=== PATIENT | male | born 1950 | race African-American/Black ===

== ENCOUNTER 2017-05-13 09:52 | Emergency (ER) | payer MEDICARE, MEDICAID ==
[2017-05-13 10:21] LABS: #Basophils 0.1 thou/uL (0.0-0.2); #Eosinphils 0.3 thou/uL (0.0-0.7); #Lymphocytes 2.3 thou/uL (1.20-3.40); #Monocytes 0.5 thou/uL (0.11-0.59); #Neutrophils 2.5 thou/uL (1.40-6.50); %Basophils 2.5 % (0.0-1.0); %Eosinophils 5.8 % (0.0-10.0); %Lymphocytes 40.1 % (21.0-51.0); %Monocytes 8.6 % (0.0-10.0); %Neutrophils 43.1 % (42.0-75.0); Hemoglobin 15.8 g/dL (14.0-18.0); Mean Corpuscular HGB CONC 33.4 g/dL (32.0-36.0); Mean Corpuscular Hemoglobin 30.9 pg (27.0-31.0); Mean Corpuscular Volume 92.4 fl (80.0-94.0); Mean Platelet Volume 6.2 fL (7.4-10.4); Platelet Count 205 thou/uL (130-400); RBC Distribution Width 13.3 % (11.5-14.5); Red Blood Cell (RBC) Count 5.12 mill/uL (4.70-6.10); White Blood Cell (WBC) Count 5.7 thou/uL (4.8-10.8)
[2017-05-13] MEDS ORDERED: Ketorolac Tromethamine 30 MG/ML VIAL ONE (10:26)
[2017-05-13 10:32] LABS: ALT (SGPT) 93 U/L (8-55); AST (SGOT) 92 U/L (5-34); Albumin 3.6 g/dL (3.4-4.8); Alkaline Phosphatase 150 U/L (40-150); Anion Gap 13 mmol/L (10-20); BUN (Urea Nitrogen) 9 mg/dL (8.4-25.7); Bilirubin, Total 0.5 mg/dL (0.2-1.2); Calc. Creatinine Clearance 0 mL/min (70-130); Carbon Dioxide 20 mmol/L (23-31); Chloride 109 mmol/L (98-107); Estimated GFR-MDRD Greater than 90; Globulin 4.4 g/dL (2.4-3.5); Glucose 160 mg/dL (80-115); Lipase 169 U/L (8-78); Potassium 4.3 mmol/L (3.5-5.1); Sodium 138 mmol/L (136-145)
[2017-05-13 10:33] LABS: CKMB 2.1 ng/mL (0-6.6)
--- NOTE | 2017-05-13 13:39 | RAD ---
CHEST TWO VIEWS: 05/13/2017 COMPARISON: No prior films are available for comparison. FINDINGS: The heart is probably normal in size, given the body habitus. At most, it is upper normal. There is no congestive change, pleural effusion, or pulmonary edema. No focal pulmonary findings are appreci ated. There is a little thickening or a tiny amount of fluid in the minor fissure, which is probably not significant. The mediastinum shows no acute changes. IMPRESSION: No acute thoracic findings. POS: HOME
== END 2017-05-13 11:10 | disposition home or self-care (01) ==
LOC: BURERS 09:52
DX: S39.011A Strain of muscle, fascia and tendon of abdomen, initial encounter (principal); M19.012 Primary osteoarthritis, left shoulder; M19.011 Primary osteoarthritis, right shoulder; E78.5 Hyperlipidemia, unspecified; I10 Essential (primary) hypertension; J44.9 Chronic obstructive pulmonary disease, unspecified; F17.210 Nicotine dependence, cigarettes, uncomplicated; F32.9 Major depressive disorder, single episode, unspecified; Z79.899 Other long term (current) drug therapy; X50.9XXA Other and unspecified overexertion or strenuous movements or postures, initial encounter
CPT/HCPCS: 71020; 80053; 82553; 83690; 84484; 85025; 85379; 93005; 96374; 99406; J1885

== ENCOUNTER 2019-02-13 11:40 | Emergency (ER) | payer MEDICARE, MEDICAID ==
[2019-02-13] MEDS ORDERED: Fentanyl 100 MCG/2 ML VIAL ONE ×2 (12:12→13:34)
[2019-02-13] MEDS ORDERED: Ondansetron PF 4 MG/2 ML Vial ONE (12:13)
[2019-02-13 12:31] LABS: #Basophils 0.1 thou/uL (0.0-0.2); #Eosinphils 0.2 thou/uL (0.0-0.7); #Monocytes 0.6 thou/uL (0.11-0.59); #Neutrophils 3.4 thou/uL (1.40-6.50); %Eosinophils 3.3 % (0.0-10.0); %Lymphocytes 31.5 % (21.0-51.0); %Monocytes 9.3 % (0.0-10.0); Hemoglobin 14.7 g/dL (14.0-18.0); Mean Corpuscular HGB CONC 32.4 g/dL (32.0-36.0); Mean Corpuscular Volume 95.5 fL (78.0-98.0); Mean Platelet Volume 6.6 fL (7.4-10.4); Platelet Count 219 thou/uL (130-400); RBC Distribution Width 13.3 % (11.5-14.5); Red Blood Cell (RBC) Count 4.75 mill/uL (4.70-6.10); White Blood Cell (WBC) Count 6.3 thou/uL (4.8-10.8)
[2019-02-13 12:47] LABS: ALT (SGPT) 98 U/L (8-55); AST (SGOT) 97 U/L (5-34); Albumin 3.7 g/dL (3.4-4.8); Alkaline Phosphatase 92 U/L (40-150); Anion Gap 13 mmol/L (10-20); BUN (Urea Nitrogen) 25 mg/dL (8.4-25.7); Bilirubin, Total 0.8 mg/dL (0.2-1.2); Calc. Creatinine Clearance 0 mL/min (70-130); Calcium 9.3 mg/dL (7.8-10.44); Carbon Dioxide 25 mmol/L (23-31); Chloride 103 mmol/L (98-107); Estimated GFR-MDRD 77; Globulin 4.6 g/dL (2.4-3.5); Glucose 122 mg/dL (80-115); Potassium 4.4 mmol/L (3.5-5.1); Protein, Total 8.3 g/dL (5.8-8.1); Sodium 137 mmol/L (136-145)
--- NOTE | 2019-02-13 13:20 | RAD ---
PORTABLE CHEST: Date: 02/13/19 An AP portable film at 1231 hours is compared with the 05/13/17 study. Allowing for this being an AP projection film and partial expiration, and the overall body habitus, h eart size is probably normal and not really different from the 2017 study. There is no vascular conge stion, edema, or pleural effusion. No sign of pneumonia. Bony structures showed no acute change. IMPRESSION: No acute findings. POS: HOME
--- NOTE | 2019-02-13 18:06 | CT ---
CT ABDOMEN AND PELVIS WITH CONTRASTs: 02/13/[address] of the abdomen and pelvis was performed for evaluation of abdominal pain. The stomach is markedly distended with diluted oral contrast. Small bowel is dilated down through the mid small bowel level with some loops up to 5 cm in diameter. The patient has a known ventral abdomi nal wall hernia. There is bowel within the hernia sac that is also dilated. This is presumably now an incarcerated hernia causing obstruction of the mid small bowel and areas proximal to it. The distal small bowel and the colon showed no dilation. No free air or free fluid was evident. The lung bases show dependent atelectasis. Some fluid is present in the lower esophagus which no doub t is due to reflux from the distended stomach. There is some motion artifact on this study as the pat ient vomited during it. The liver, spleen, pancreas, adrenal glands and abdominal aorta were unremark able. There might be a tiny gallstone in the gallbladder, but ultrasound would be needed to be certai n. The gallbladder does not appear exceptionally distended and no wall thickening was noted. The kidn eys showed no mass or hydronephrosis. CT of the pelvis showed no pelvic masses, free fluid, or inflammatory changes. IMPRESSION: Mid-small bowel obstruction secondary to bowel that is trapped in the known abdominal hernia. A large amount of retained fluid is present in the stomach as a result. Findings discussed with Dr. Cox at 1501 on 02/13/19. POS: HOME
== END 2019-02-13 15:38 | disposition short-term general hospital (02) ==
LOC: BURERS 11:40
DX: K43.6 Other and unspecified ventral hernia with obstruction, without gangrene (principal); I10 Essential (primary) hypertension; F17.210 Nicotine dependence, cigarettes, uncomplicated; Z79.899 Other long term (current) drug therapy
CPT/HCPCS: 36415; 71045; 74177; 80053; 83605; 84484; 85025; 93005; 94760; 96361; 96374; 96375; 96376; J2405; J3010

== ENCOUNTER 2020-06-26 11:37 | Emergency (ER) | payer MEDICARE, OTHER | END 2020-06-26 12:48 | disposition home or self-care (01) | LOC: BURERS 11:37 | DX: M10.9 Gout, unspecified (principal); Z79.899 Other long term (current) drug therapy; I10 Essential (primary) hypertension; F17.210 Nicotine dependence, cigarettes, uncomplicated | CPT/HCPCS: 99283 ==

== ENCOUNTER 2024-02-09 11:53 | Emergency (ER) | payer OTHER ==
[2024-02-09] MEDS ORDERED: Ketorolac Tromethamine 30 MG (1 mL) VIAL ONE (12:11)
[2024-02-09] MEDS ORDERED: Colchicine 0.6 MG TAB ONE (12:11)
== END 2024-02-09 12:15 | disposition home or self-care (01) ==
LOC: BURERS 11:53
DX: M10.9 Gout, unspecified (principal); L03.032 Cellulitis of left toe; L03.031 Cellulitis of right toe; I10 Essential (primary) hypertension; F17.210 Nicotine dependence, cigarettes, uncomplicated
CPT/HCPCS: 96372; 99283; J1885

== ENCOUNTER 2025-03-15 13:17 | Emergency (ER) | payer OTHER, MEDICAID | END 2025-03-15 14:00 | disposition home or self-care (01) | LOC: BURERS 13:17 | DX: L21.9 Seborrheic dermatitis, unspecified (principal); I10 Essential (primary) hypertension; F17.210 Nicotine dependence, cigarettes, uncomplicated | CPT/HCPCS: 99283 ==